=== PATIENT | male | born 1965 | race Caucasian/White ===

== ENCOUNTER 2023-03-21 21:18 | Emergency (ER) | payer MEDICAID ==
[2023-03-21] MEDS: Tetracaine HCl/PF 0.5% 4 ML Bottle EYERT ONE (21:45)
[2023-03-21] MEDS: Acetaminophen/HYDROcodone 325-10 MG Tab PO ONE (22:05)
[2023-03-21 23:28] VITALS: BP 182/100; PULSE 80
== END 2023-03-21 22:27 | disposition home or self-care (01) ==
LOC: DL.ED 21:18
DX: H57.11 Ocular pain, right eye (principal); G89.18 Other acute postprocedural pain; E11.9 Type 2 diabetes mellitus without complications; I10 Essential (primary) hypertension; Z79.84 Long term (current) use of oral hypoglycemic drugs; Z79.01 Long term (current) use of anticoagulants; Z79.899 Other long term (current) drug therapy; Z79.82 Long term (current) use of aspirin; Z79.4 Long term (current) use of insulin; Z88.8 Allergy status to other drugs, medicaments and biological substances
CPT/HCPCS: 99283; A9270; J3490